=== PATIENT | female | born 2000 | race Caucasian/White ===

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

== ENCOUNTER 2018-06-10 11:13 | Emergency (ER) | payer BC ==
[2018-06-10 13:09] VITALS: BP 131/68
--- NOTE | 2018-06-10 13:24 | ED ---
Throat Pain/Nasal Congestion - HPI Summary HPI Summary: pain in the left ear , worse than the right - History of Current Complaint Chief Complaint: UCEar Time Seen by Provider: 06/10/18 13:17 Hx Obtained From: Patient Onset/Duration: Lasting Days Severity: Severe - Epiglottits Risk Factors Epiglottis Risk Factors: Negative - Allergies/Home Medications Allergies/Adverse Reactions: Allergies Allergy/AdvReac Type Severity Reaction Status Date / Time No Known Allergies Allergy Verified 06/10/18 13:07 PMH/Surg Hx/FS Hx/Imm Hx Previously Healthy: Yes - Surgical History Surgery Procedure, Year, and Place: right knee 2018 Infectious Disease History: No Infectious Disease History: Denies: Hx Clostridium Difficile, Hx Hepatitis, Hx Human Immunodeficiency Virus (HIV), Hx of Known/Suspected MRSA, Hx Shingles, Hx Tuberculosis, Hx Known/ Suspected VRE, Hx Known/Suspected VRSA, History Other Infectious Disease, Traveled Outside the in Last 30 Days - Family History Known Family History: Positive: Cardiac Disease - Social History Alcohol Use: Occasionally Substance Use Type: Reports: None Smoking Status (MU): Never Smoked Tobacco Review of Systems Constitutional: Negative Eyes: Negative ENT: Negative Cardiovascular: Negative Respiratory: Negative Gastrointestinal: Negative Genitourinary: Negative Musculoskeletal: Negative Skin: Negative All Other Systems Reviewed And Are Negative: Yes Physical Exam Triage Information Reviewed: Yes Vital Signs On Initial Exam: Initial Vitals Temp Pulse Resp BP Pulse Ox 36.4 C 73 16 131/68 100 06/10/18 13:05 06/10/18 13:05 06/10/18 13:05 06/10/18 13:05 06/10/18 13:05 Vital Signs Reviewed: Yes Appearance: Positive: Well-Appearing, Pain Distress Skin: Positive: Warm, Dry Head/Face: Positive: Normal Head/Face Inspection Eyes: Positive: Normal ENT: Positive: Other - left sided otitis media Neck: Positive: Supple Respiratory/Lung Sounds: Positive: Clear to Auscultation Cardiovascular: Positive: Normal Diagnostics - Vital Signs Vital Signs Temp Pulse Resp BP Pulse Ox 06/10/18 13:05 36.4 C 73 16 131/68 100 - Laboratory Lab Statement: Any lab studies that have been ordered have been reviewed, and results considered in the medical decision making process. EENT Course/Dx - Diagnoses Provider Diagnoses: Otitis media Discharge - Sign-Out/Discharge Documenting (check all that apply): Patient Departure All imaging exams completed and their final reports reviewed: Yes - Discharge Plan Condition: Good Disposition: HOME Patient Education Materials: Ear Infection (ED) Referrals: No Primary Care Phys,NOPCP [Primary Care Provider] - - Billing Disposition and Condition Condition: GOOD Disposition: Home
== END 2018-06-10 13:43 | disposition home or self-care (01) ==
LOC: UCCORT 11:13
DX: H66.92 Otitis media, unspecified, left ear (principal)
CPT/HCPCS: 99212; G0463

== ENCOUNTER 2018-06-11 20:18 | Emergency (ER) | payer BC ==
[2018-06-11 20:39] VITALS: BP 142/83
[2018-06-11] MEDS ORDERED: Amoxicillin/Clavulanate TAB* 875 MG PO ONE ×2 (20:52)
[2018-06-11] MEDS ORDERED: Ibuprofen TAB* 600 MG PO ONE (20:53)
--- NOTE | 2018-06-11 21:01 | UC ---
Throat Pain/Nasal Mariano HPI - HPI Summary HPI Summary: 18-year-old woman here today with a chief complaint of sinus congestion. Patient's been having left ear pain and sinus congestion and sinus headache for almost a week. She was started on amoxicillin yesterday for the left EAR. The ear pain is decreased. Patient's been using DayQuil and NyQuil without improvement. The headache is frontal at 8 out of 10. She has not tried any ibuprofen. No neck stiffness. - History of Current Complaint Chief Complaint: UCRespiratory Stated Complaint: BURGOS,RUNNY NOSE,EAR COMPLAINT Time Seen by Provider: 06/11/18 20:41 Hx Last Menstrual Period: 05/22/18 Pain Intensity: 8 - Allergies/Home Medications Allergies/Adverse Reactions: Allergies Allergy/AdvReac Type Severity Reaction Status Date / Time No Known Allergies Allergy Verified 06/11/18 20:39 Home Medications: Home Medications D-Methorphan/PE/Acetaminophen [Vicks Dayquil Cold & Flu] 2 cap PO Q24HR PRN 05/21 [History Confirmed 06/11/18] Norgestimate-Ethinyl Estradiol [Sprintec 28 0.25-35 mg-Mcg] 1 tab PO QPM [History Confirmed 06/11/18] PMH/Surg Hx/FS Hx/Imm Hx Previously Healthy: Yes - recurrent sinusitis - Surgical History Surgical History: Yes Surgery Procedure, Year, and Place: right knee 2018 - Family History Known Family History: Positive: Cardiac Disease - Social History Alcohol Use: Occasionally Substance Use Type: None Smoking Status (MU): Never Smoked Tobacco Review of Systems Constitutional: Negative, Fever Eyes: Negative ENT: Sore Throat, Ear Ache, Nasal Discharge, Sinus Congestion, Sinus Pain/ Tenderness Respiratory: Negative Cardiovascular: Negative Gastrointestinal: Negative Motor: Negative Neurovascular: Negative Musculoskeletal: Negative Neurological: Negative Psychological: Negative Is Patient Immunocompromised?: No All Other Systems Reviewed And Are Negative: Yes Physical Exam Triage Information Reviewed: Yes Appearance: No Pain Distress, Well-Nourished, Ill-Appearing - MILD Vital Signs: Initial Vital Signs Temp 99.3 F 06/11/18 20:30 Pulse 86 06/11/18 20:30 Resp 18 06/11/18 20:30 BP 142/83 06/11/18 20:30 Pulse Ox 100 06/11/18 20:30 Vital Signs Reviewed: Yes Eye Exam: Normal Eyes: Positive: Conjunctiva Clear ENT: Positive: Nasal congestion, Nasal drainage, TMs normal Neck exam: Normal Neck: Positive: Supple Respiratory Exam: Normal Respiratory: Positive: Lungs clear, Normal breath sounds, No respiratory distress Cardiovascular Exam: Normal Cardiovascular: Positive: RRR Musculoskeletal Exam: Normal Musculoskeletal: Positive: Strength Intact, ROM Intact Neurological Exam: Normal Neurological: Positive: Alert, Muscle Tone Normal Psychological Exam: Normal Psychological: Positive: Age Appropriate Behavior Skin Exam: Normal Throat Pain/Nasal Course/Dx - Course Course Of Treatment: We will change the amoxicillin to Augmentin. I discussed with the patient starting to use saline nasal spray and also a steroid nasal spray such as Nasacort or Flonase. The nasal sprays role [id number]. Also gave her ibuprofen 600 mg in the clinic. I discussed with her taking ibuprofen and/or acetaminophen as directed as needed for headache. Also hot steamy showers. No signs of meningitis at this time. Get rechecked if not improved. - Differential Dx/Diagnosis Provider Diagnoses: SINUSITIS. HEADACHE Discharge - Sign-Out/Discharge Documenting (check all that apply): Patient Departure All imaging exams completed and their final reports reviewed: No Studies - Discharge Plan Condition: Stable Disposition: HOME Prescriptions: Amoxicillin/Clavulanate TAB* [Augmentin TAB 875*] 875 mg PO BID #18 tab Patient Education Materials: Sinusitis (ED), Acute Headache (ED) Referrals: [facility] [Outside] [facility] [place] [facility] [Outside] Additional Instructions: FOLLOW UP WITH YOUR DOCTOR IF NOT COMPLETELY IMPROVED. GET RECHECKED FOR ANY WORSENING OF YOUR CONDITION OR QUESTIONS OR CONCERNS. - Billing Disposition and Condition Condition: STABLE Disposition: Home
== END 2018-06-11 21:08 | disposition home or self-care (01) ==
LOC: UCCORT 20:18
DX: J32.9 Chronic sinusitis, unspecified (principal); R51 Headache
CPT/HCPCS: 99213; A9270-GY; G0463

== ENCOUNTER 2018-06-24 15:25 | Emergency (ER) | payer BC ==
[2018-06-24 17:11] VITALS: BP 131/83
--- NOTE | 2018-06-24 17:39 | ED ---
Skin Complaint - HPI Summary HPI Summary: 18 yr old with history of eczema presents here with redness and mild swelling left antecubital area. She states she has pustules left arm, left thigh and left side of neck that have all resolved on their own after she pushed pus out of them. She denies IV drug use. Denies fever, chills. She has not felt sick. No other complaints. - History of Current Complaint Chief Complaint: UCSkin Time Seen by Provider: 06/24/18 17:16 Stated Complaint: SKIN COMPLAINT Hx Last Menstrual Period: 06/15/18 Pain Intensity: 0 - Allergy/Home Medications Allergies/Adverse Reactions: Allergies Allergy/AdvReac Type Severity Reaction Status Date / Time No Known Allergies Allergy Verified 06/11/18 20:39 PMH/Surg Hx/FS Hx/Imm Hx - Surgical History Surgery Procedure, Year, and Place: right knee 2018 Infectious Disease History: No Infectious Disease History: Denies: Hx Clostridium Difficile, Hx Hepatitis, Hx Human Immunodeficiency Virus (HIV), Hx of Known/Suspected MRSA, Hx Shingles, Hx Tuberculosis, Hx Known/ Suspected VRE, Hx Known/Suspected VRSA, History Other Infectious Disease, Traveled Outside the [place] in Last 30 Days - Family History Known Family History: Positive: Cardiac Disease - Social History Alcohol Use: Occasionally Substance Use Type: Reports: None Smoking Status (MU): Never Smoked Tobacco Review of Systems Constitutional: Negative Positive: Other - skin in fection All Other Systems Reviewed And Are Negative: Yes Physical Exam Triage Information Reviewed: Yes Vital Signs On Initial Exam: Initial Vitals Temp Pulse Resp BP Pulse Ox 98.4 F 67 15 131/83 100 06/24/18 17:07 06/24/18 17:07 06/24/18 17:07 06/24/18 17:07 06/24/18 17:07 Vital Signs Reviewed: Yes Appearance: Positive: Well-Appearing, No Pain Distress Skin: Positive: Other - skin over antecubital fossa with some mild eczematous chagnes. The right side with 2 cm area of redness, no fluctuance.Minimal induration. Head/Face: Positive: Normal Head/Face Inspection Eyes: Positive: EOMI Neck: Positive: Supple, Nontender Respiratory/Lung Sounds: Positive: Clear to Auscultation, Breath Sounds Present Cardiovascular: Positive: RRR. Negative: Murmur Abdomen Description: Positive: Nontender Musculoskeletal: Positive: Strength/ROM Intact Neurological: Positive: Sensory/Motor Intact, Alert, Oriented to Person Place, Time, CN Intact II-III Psychiatric: Positive: Normal - [place] Coma Scale Best Eye Response: 4 - Spontaneous Best Motor Response: 6 - Obeys Commands Best Verbal Response: 5 - Oriented Coma Scale Total: 15 Diagnostics - Vital Signs Vital Signs Temp Pulse Resp BP Pulse Ox 06/24/18 17:07 98.4 F 67 15 131/83 100 - Laboratory Lab Statement: Any lab studies that have been ordered have been reviewed, and results considered in the medical decision making process. Course/Dx - Course Course Of Treatment: 18 yr old with cellulitis right antecubital fossa. Rx with bactrim DS. - Diagnoses Provider Diagnoses: Cellulitis Discharge - Sign-Out/Discharge Documenting (check all that apply): Patient Departure All imaging exams completed and their final reports reviewed: No Studies - Discharge Plan Condition: Good Disposition: HOME Prescriptions: Sulfamethox/Trimethoprim DS* [Bactrim DS 800/160 TAB*] 1 tab PO BID #20 tab Patient Education Materials: Cellulitis (ED) Referrals: No Primary Care Phys,NOPCP [Primary Care Provider] - [facility] [place] [facility] [place]] - Billing Disposition and Condition Condition: GOOD Disposition: Home
== END 2018-06-24 17:43 | disposition home or self-care (01) ==
LOC: UCCORT 15:25
DX: L03.114 Cellulitis of left upper limb (principal)
CPT/HCPCS: 99212; G0463

== ENCOUNTER 2018-10-01 08:28 | Emergency (ER) | payer BC ==
[2018-10-01 08:55] VITALS: BP 130/62
--- NOTE | 2018-10-01 09:27 | UC ---
Skin Complaint HPI - HPI Summary HPI Summary: boil left upper back x 3 days the area is painful, swollen, ret, had yellow / green drainage yesterday no fever, had upset stomach and vomiting this morning - History of Current Complaint Chief Complaint: UCSkin Time Seen by Provider: 10/01/18 09:17 Stated Complaint: VOMITTING,BACK SKIN COMPLAINT,POSS CYST Hx Obtained From: Patient Hx Last Menstrual Period: 09/11/18 Onset/Duration: Gradual Onset, Lasting Days - 3, Still Present Timing: Constant Onset Severity: Moderate Current Severity: Moderate Pain Intensity: 7 Location: Discrete - left upper back Character: Swelling, Redness, Raised, Painful Aggravating Factor(s): Touch Alleviating Factor(s): Nothing Associated Signs & Symptoms: Positive: Nausea, Vomiting, Tenderness. Negative: Fever, Chills, Cough, Red Streaks - Allergy/Home Medications Allergies/Adverse Reactions: Allergies Allergy/AdvReac Type Severity Reaction Status Date / Time cortisone Allergy Swelling Verified 10/01/18 08:48 PMH/Surg Hx/FS Hx/Imm Hx Previously Healthy: Yes - Surgical History Surgical History: Yes Surgery Procedure, Year, and Place: right knee 2018 - Family History Known Family History: Positive: Cardiac Disease - Social History Alcohol Use: Occasionally Substance Use Type: None Smoking Status (MU): Never Smoked Tobacco Review of Systems All Other Systems Reviewed And Are Negative: Yes Constitutional: Positive: Negative Eyes: Positive: Negative ENT: Positive: Negative Respiratory: Positive: Negative Gastrointestinal: Positive: Abdominal Pain, Vomiting, Nausea Genitourinary: Positive: Negative Is Patient Immunocompromised?: No Physical Exam Triage Information Reviewed: Yes Appearance: Well-Appearing, No Pain Distress, Well-Nourished Vital Signs: Initial Vital Signs Temp 98.1 F 10/01/18 08:49 Pulse 76 10/01/18 08:49 Resp 18 10/01/18 08:49 BP 130/62 10/01/18 08:49 Pulse Ox 100 10/01/18 08:49 Vital Signs Reviewed: Yes Eye Exam: Normal Eyes: Positive: Conjunctiva Clear ENT: Positive: Normal ENT inspection, Hearing grossly normal, Pharynx normal Neck: Positive: Supple, Nontender, No Lymphadenopathy Respiratory: Positive: Chest non-tender, Lungs clear, Normal breath sounds Cardiovascular: Positive: RRR, No Murmur, Pulses Normal Abdomen Description: Positive: Nontender, Soft. Negative: CVA Tenderness (R), CVA Tenderness (L), Distended, Guarding Bowel Sounds: Positive: Present Skin: Positive: Other - small abscess left upper back , + erythema, tender to touch , Course/Dx - Diagnoses Provider Diagnosis: Abscess of back, Gastritis Discharge - Sign-Out/Discharge Documenting (check all that apply): Patient Departure All imaging exams completed and their final reports reviewed: No Studies - Discharge Plan Condition: Stable Disposition: HOME Prescriptions: Sulfamethox/Trimethoprim DS* [Bactrim DS 800/160 TAB*] 1 tab PO BID #14 tab Patient Education Materials: Abscess (ED) Referrals: No Primary Care Phys,NOPCP [Primary Care Provider] - If Needed - Billing Disposition and Condition Condition: STABLE Disposition: Home
== END 2018-10-01 09:30 | disposition home or self-care (01) ==
LOC: UCCORT 08:28
DX: L02.212 Cutaneous abscess of back [any part, except buttock and flank] (principal); K29.70 Gastritis, unspecified, without bleeding; Z88.8 Allergy status to other drugs, medicaments and biological substances
CPT/HCPCS: 99212; G0463

== ENCOUNTER 2018-12-12 11:44 | Emergency (ER) | payer BC ==
[2018-12-12 11:58] VITALS: BP 143/74
--- NOTE | 2018-12-12 12:29 | UC ---
Throat Pain/Nasal Mariano HPI - HPI Summary HPI Summary: Patient presents to urgent care reporting sore throat progressive the last 24 hours. Patient states she felt like her tongue was swollen. Patient with painful swallowing but no difficulty swallowing. No difficulty with secretions. Patient did not take anything for pain today. Patient is not having to eat or drink today. Patient denies any nausea/vomiting. No fevers or chills. No ear pain or sinus pain. Patient was exposed to strep approximately one week ago. Patient states she is not . Patient's medications reviewed this visit. - History of Current Complaint Chief Complaint: UCRespiratory Stated Complaint: TOUNGE SWELLING Time Seen by Provider: 12/12/18 12:21 Hx Obtained From: Patient Hx Last Menstrual Period: last week Onset/Duration: Gradual Onset Severity: Moderate Pain Intensity: 7 Pain Scale Used: 0-10 Numeric - Allergies/Home Medications Allergies/Adverse Reactions: Allergies Allergy/AdvReac Type Severity Reaction Status Date / Time cortisone Allergy Swelling Verified 12/12/18 11:50 local Home Medications: Home Medications diphenhydrAMINE HCl [Benadryl Allergy] 25 mg PO ONCE PRN 12/12/18 [History Confirmed 12/12/18] PMH/Surg Hx/FS Hx/Imm Hx Previously Healthy: Yes - Surgical History Surgical History: Yes Surgery Procedure, Year, and Place: right knee 2018 - Family History Known Family History: Positive: Cardiac Disease - Social History Occupation: Student Lives: Dormitory/Roommates - off campus Alcohol Use: Occasionally Substance Use Type: None Smoking Status (MU): Never Smoked Tobacco Review of Systems All Other Systems Reviewed And Are Negative: Yes Constitutional: Positive: Negative Skin: Positive: Negative ENT: Positive: Sore Throat. Negative: Ear Ache, Nasal Discharge, Sinus Congestion, Sinus Pain/Tenderness Respiratory: Positive: Negative Cardiovascular: Positive: Negative Gastrointestinal: Positive: Negative Physical Exam - Summary Physical Exam Summary: Vital Signs Reviewed: Yes A+Ox3, no distress, speaking full, easy sentences,no difficulty with secretions , no muffled voice, laughing, interacting Eyes: Conjunctiva Clear, STEPH. EOM intact and full ENT: Hearing grossly normal TM x 2 clear, turbinates wnl, moist, uvula midline , symmetric, diffuse erythema, no exudate normal moblity and lie of tongue Neck: Positive: Supple, + submandicular LA L>R Respiratory: Positive: No respiratory distress, No accessory muscle use + CTA throughout no w/r Cardiovascular: RRR nl s1, s2 no m/r CBT <2 sec abd soft + BS nt/nd no guarding, no distension Musculoskeletal Exam: HONG x 4 without difficulty Strength Intact, ROM Intact Neurological: Positive: Alert, + sensation throughout Psychological: Positive: Normal Response To Family Skin: Positive: no rash, no ecchymosis Triage Information Reviewed: Yes Vital Signs: Initial Vital Signs Temp 99.9 F 12/12/18 11:52 Pulse 84 12/12/18 11:52 Resp 20 12/12/18 11:52 BP 143/74 12/12/18 11:52 Pulse Ox 100 12/12/18 11:52 Throat Pain/Nasal Course/Dx - Course Course Of Treatment: Patient presents to urgent care with 24 hours of progressive sore throat. Patient was exposed to strep week ago. Patient has not taken anything for pain. Patient vital signs are stable. Patient with out any difficulty with secretions or airway time of presentation. Patient strep is positive. Patient does have diffuse erythema of the oropharynx as well as submandibular lymphadenopathy. No concern for abscess on today's visit. We'll start amoxicillin.'s gargle and spit warm salt water. Fluids. Strict return precautions. Patient does have a history of allergies allergic reaction cortisones will not use any steroids at this visit. Patient declined offer to speak to parents. Patient comfortable in agreement with plan. Patient's friend present with her. Patient advised to call 911 immediately if she feels like she is having difficulty handling her secretions or breathing. Patient states understanding mild increase BP- recommend f/u with PCP - Differential Dx/Diagnosis Provider Diagnosis: Strep pharyngitis Discharge - Sign-Out/Discharge Documenting (check all that apply): Patient Departure All imaging exams completed and their final reports reviewed: No Studies - Discharge Plan Condition: Stable Disposition: HOME Prescriptions: Amoxicillin PO (*) [Amoxicillin 500 MG CAP*] 500 mg PO Q12H #20 cap Patient Education Materials: Strep Throat (ED) Referrals: [facility] [Outside] No Primary Care Phys,NOPCP [Primary Care Provider] - Additional Instructions: - Okay to alternate ibuprofen (Advil, Motrin) 600mg and Tylenol 1000mg every 3 hours for pain. Take with food. Do NOT take for more than 4-5 days - Okay to gargle and spit warm salt water every 4 hours as needed for pain - Stay well hydrated - frequent sips of cold fluids will be soothing to your throat (popsicles, jello, ice cream, ice water). Avoid excess caffeine until your symptoms have resolved. -Throat infections are spread by oral secretions - do not share eating or drinking utensils until you symptoms are resolved. Clean items that may get your secretions such as cell phones, ipads, computer mouse, television remotes. Once you have been on antibiotics for 2 days, change your toothbrush and your pillowcase. -Humidify the air in the room where you sleep - boil water, run a hot steam shower, vaporizer, cups of water by heat register - Contact your doctor to arrange a follow-up appointment as needed - Billing Disposition and Condition Condition: STABLE Disposition: Home
== END 2018-12-12 12:55 | disposition home or self-care (01) ==
LOC: UCCORT 11:44
DX: J02.0 Streptococcal pharyngitis (principal); Z88.8 Allergy status to other drugs, medicaments and biological substances
CPT/HCPCS: 87651; 99211; G0463

== ENCOUNTER 2019-05-28 12:24 | Emergency (ER) | payer BC ==
[2019-05-28 13:55] VITALS: BP 135/95
--- NOTE | 2019-05-28 14:24 | UC ---
Throat Pain/Nasal Mariano HPI - HPI Summary HPI Summary: 19-year-old female presents with 2 day history of sore throat. Associated with some mild nasal congestion and occasional productive cough. Has been taking ibuprofen with some relief in symptoms. Denies fever, chills, ear pain, dysphagia, chest pain, shortness of breath, abdominal pain, nausea, or vomiting. - History of Current Complaint Chief Complaint: UCGeneralIllness Stated Complaint: ST Time Seen by Provider: 05/28/19 13:52 Hx Obtained From: Patient Hx Last Menstrual Period: last week Pain Intensity: 7 - Allergies/Home Medications Allergies/Adverse Reactions: Allergies Allergy/AdvReac Type Severity Reaction Status Date / Time cortisone AdvReac Swelling Verified 05/28/19 13:55 local Home Medications: Home Medications Ibuprofen TAB* [Advil TAB*] 400 mg PO Q6H PRN 05/28/19 [History Confirmed ] PMH/Surg Hx/FS Hx/Imm Hx Previously Healthy: Yes - Denies significant PMH - Surgical History Surgical History: Yes Surgery Procedure, Year, and Place: right knee 2018 - Family History Known Family History: Positive: Cardiac Disease - Social History Occupation: Student Lives: Dormitory/Roommates Alcohol Use: Weekly Substance Use Type: None Smoking Status (MU): Never Smoked Tobacco Review of Systems All Other Systems Reviewed And Are Negative: Yes Constitutional: Negative: Fever, Chills Skin: Negative: Rash Eyes: Negative: Drainage, Eye Redness ENT: Positive: Sore Throat, Sinus Congestion. Negative: Ear Ache, Nasal Discharge, Sinus Pain/Tenderness Respiratory: Positive: Cough. Negative: Shortness Of Breath Cardiovascular: Positive: Negative Gastrointestinal: Negative: Abdominal Pain, Vomiting, Diarrhea, Nausea Genitourinary: Positive: Negative Musculoskeletal: Positive: Negative Neurological: Positive: Negative Is Patient Immunocompromised?: No Physical Exam - Summary Physical Exam Summary: GENERAL APPEARANCE: Well developed, well nourished, alert and cooperative, and appears to be in no acute distress. EYES: Conjunctiva clear. No drainage. EARS: External auditory canals and tympanic membranes clear, hearing grossly intact. NOSE: Mild nasal congestion. No nasal discharge. THROAT: Pharyngeal erythema. 3+ tonsils without exudate. Uvula midline. NECK: Neck supple, non-tender. Anterior cervical lymphadenopathy. CARDIAC: Normal S1 and S2. No S3, S4 or murmurs. Rhythm is regular. There is no peripheral edema, cyanosis or pallor. Extremities are warm and well perfused. Capillary refill is less than 2 seconds. Peripheral pulses intact. LUNGS: Clear to auscultation without rales, rhonchi, wheezing or diminished breath sounds. Cough not observed. ABDOMEN: Positive bowel sounds. Soft, nondistended, nontender. No guarding or rebound. No masses or hepatosplenomegally. MUSKULOSKELETAL: ROM intact to all extremities. No joint erythema or tenderness. Normal muscular development. Normal gait. SKIN: Skin normal color, texture and turgor with no lesions or eruptions. Triage Information Reviewed: Yes Vital Signs: Initial Vital Signs Temp 98.6 F 05/28/19 13:52 Pulse 105 05/28/19 13:52 Resp 15 05/28/19 13:52 BP 135/95 05/28/19 13:52 Pulse Ox 100 05/28/19 13:52 Vital Signs Reviewed: Yes Throat Pain/Nasal Course/Dx - Course Course Of Treatment: 19-year-old female presents with 2 day history of sore throat. Associated with some mild nasal congestion and occasional productive cough. Has been taking ibuprofen with some relief in symptoms. Denies fever, chills, ear pain, dysphagia, chest pain, shortness of breath, abdominal pain, nausea, or vomiting. Afebrile. Mildly tachycardic wasstable. Patient had mild nasal congestion, pharyngeal erythema 3+ tonsils without exudate, anterior cervical lymphadenopathy, clear bilateral breath sounds, and otherwise unremarkable exam. Rapid strep test was positive. We will treat for a strep pharyngitis with amoxicillin 500 mg twice a day 10 days as well as symptomatic treatment. She is to return here or follow up at the [facility] in 3 days if symptoms are not improving. Anticipatory guidance and warning symptoms were reviewed with the patient. Verbalizes understanding and agrees with plan of care. - Differential Dx/Diagnosis Differential Diagnosis/HQI/PQRI: Mononucleosis, Peritonsillar Abscess, Pharyngitis, Tonsillitis, URI Provider Diagnosis: Strep pharyngitis Discharge ED - Sign-Out/Discharge Documenting (check all that apply): Patient Departure All imaging exams completed and their final reports reviewed: No Studies - Discharge Plan Condition: Stable Disposition: HOME Prescriptions: Amoxicillin PO (*) [Amoxicillin 500 MG CAP*] 500 mg PO BID #20 cap Patient Education Materials: Strep Throat (ED) Referrals: No Primary Care Phys,NOPCP [Primary Care Provider] - Additional Instructions: Your rapid strep test in the clinic today was positive. We will start you on an antibiotic to treat the infection. Start amoxicillin 500 mg twice a day for 10 days. Take with food to avoid upset stomach. Be sure to complete the entire course even if feeling better. After you have been on antibiotics for 3 days, throw out your toothbrush and replace with a new one to prevent reinfection. Drink plenty of fluids to avoid dehydration especially if you are running any fever. Use salt water gargles several times a day. Take over the counter acetaminophen (Tylenol) or ibuprofen (Advil, Motrin) according to directions as needed for pain or fever. You may also use Chloraseptic spray or Cepacol lonzenges according to directions which contain a numbing medication and can provide some temporary relief from your sore throat. Return here or follow up with the [facility] in 3-5 days if symptoms do not improve. Seek immediate medical attention in the emergency room if you have fever greater than 100.5 F despite taking acetaminophen or ibuprofen, are unable to swallow or develop drooling, are unable to open your mouth fully, are unable to eat or drink, have pain that is not relieved with over the counter pain medication, have any difficulty breathing, or any worsening of symptoms. - Billing Disposition and Condition Condition: STABLE Disposition: Home
== END 2019-05-28 14:31 | disposition home or self-care (01) ==
LOC: UCCORT 12:24
DX: J02.0 Streptococcal pharyngitis (principal); Z88.8 Allergy status to other drugs, medicaments and biological substances
CPT/HCPCS: 87651; 99212; G0463

== ENCOUNTER 2019-07-01 18:58 | Emergency (ER) | payer BC ==
[2019-07-01 19:48] VITALS: BP 150/65
--- NOTE | 2019-07-01 20:32 | UC ---
FLU HPI - HPI Summary HPI Summary: Patient is a 19yo female presenting with friend for runny nose, fever, chills, body aches, nausea, and dry cough x1 day. Patient states symptoms have gradually worsened. Notes bilateral ear pressure. Denies sinus tenderness and sore throat. Denies SOB and wheezing. Denies v/d and abdominal pain. Denies decreased appetite and fluid intake. - History of Current Complaint Chief Complaint: UCGeneralIllness Stated Complaint: FEVER, FATIGUE, RUNNY NOSE Hx Obtained From: Patient Hx Last Menstrual Period: 06/24/19 Onset/Duration: Sudden Onset Severity Currently: Mild Severity Initially: Moderate Pain Intensity: 6 Pain Scale Used: 0-10 Numeric - Allergy/Home Medications Allergies/Adverse Reactions: Allergies Allergy/AdvReac Type Severity Reaction Status Date / Time cortisone AdvReac Swelling Verified 07/01/19 19:44 local Home Medications: Home Medications D-Methorphan/PE/Acetaminophen [Vicks Dayquil Liquicaps] 2 cap PO DAILY PRN 07/01 [History Confirmed 07/01/19] PMH/Surg Hx/FS Hx/Imm Hx Previously Healthy: Yes - Surgical History Surgical History: Yes Surgery Procedure, Year, and Place: right knee 2018 - Family History Known Family History: Positive: Cardiac Disease, Non-Contributory - Social History Alcohol Use: Weekly Substance Use Type: None Smoking Status (MU): Never Smoked Tobacco Review of Systems All Other Systems Reviewed And Are Negative: Yes Constitutional: Positive: Fever, Chills, Fatigue ENT: Positive: Ear Ache, Nasal Discharge, Sinus Congestion. Negative: Sore Throat, Sinus Pain/Tenderness Respiratory: Positive: Cough. Negative: Shortness Of Breath Cardiovascular: Positive: Negative. Negative: Palpitations, Chest Pain Gastrointestinal: Positive: Nausea. Negative: Abdominal Pain, Vomiting, Diarrhea Musculoskeletal: Positive: Negative Neurological: Positive: Negative Physical Exam Triage Information Reviewed: Yes Appearance: No Pain Distress, Well-Nourished, Ill-Appearing Vital Signs: Initial Vital Signs Temp 99.5 F 07/01/19 19:45 Pulse 84 07/01/19 19:45 Resp 20 07/01/19 19:45 BP 150/65 07/01/19 19:45 Pulse Ox 100 07/01/19 19:45 Lab Results 07/01/19 Range/Units 20:25 Influenza A (Rapid) Negative (Negative) Influenza B (Rapid) Negative (Negative) Vital Signs Reviewed: Yes ENT: Positive: Hearing grossly normal, Pharyngeal erythema, Nasal congestion, Nasal drainage, TM red - b/l, Uvula midline. Negative: Tonsillar swelling, Tonsillar exudate Neck exam: Normal Neck: Positive: Supple, Nontender, No Lymphadenopathy Respiratory Exam: Normal Respiratory: Positive: Lungs clear, Normal breath sounds, No respiratory distress. Negative: Crackles, Rhonchi, Stridor, Wheezing Cardiovascular Exam: Normal Cardiovascular: Positive: RRR. Negative: Tachycardia, Bradycardia Neurological: Positive: Alert Psychological: Positive: Age Appropriate Behavior Flu Course/Dx - Course Course Of Treatment: Discussed with patient negative rapid flu test and likely viral etiology of symptoms. Instructed to continue with symptomatic treatment. Instructed to follow up with [facility] or [facility] if symptoms persist or to go to ED if symptoms worsen. Patient voiced understanding and agreed with the treatment plan. - Differential Dx/Diagnosis Provider Diagnosis: Flu-like symptoms Discharge ED - Sign-Out/Discharge Documenting (check all that apply): Patient Departure All imaging exams completed and their final reports reviewed: No Studies - Discharge Plan Condition: Stable Disposition: HOME Patient Education Materials: Viral Syndrome (ED) Forms: *School Release Referrals: [facility] [Outside] - If Needed Additional Instructions: You tested negative for the flu today. Your symptoms are likely caused by a virus and should resolve on their own. You may take over the counter cough and cold medications to help alleviate your cold symptoms. You may take ibuprofen and tylenol as directed for pain and fever relief. IT is important that you get plenty of rest and fluids. Follow up with your [facility] or the [facility] list below if your symptoms worsen or do not resolve within 7 days. - Billing Disposition and Condition Condition: STABLE Disposition: Home
[2019-07-01 20:37] LABS: Influenza A Molecular NEGATIVE (Negative); Influenza B Molecular NEGATIVE (Negative)
[2019-07-01] MEDS ORDERED: Ibuprofen TAB* 200 MG PO ONE (20:50)
== END 2019-07-01 20:56 | disposition home or self-care (01) ==
LOC: UCCORT 18:58
DX: R05 Cough (principal); H92.09 Otalgia, unspecified ear; R09.89 Other specified symptoms and signs involving the circulatory and respiratory systems; R50.9 Fever, unspecified; R53.83 Other fatigue; R11.0 Nausea; R52 Pain, unspecified; Z88.8 Allergy status to other drugs, medicaments and biological substances
CPT/HCPCS: 99212; A9270-GY; G0463

== ENCOUNTER 2019-07-11 13:09 | Emergency (ER) | payer BC ==
[2019-07-11 13:41] VITALS: BP 129/54
--- NOTE | 2019-07-11 14:29 | UC ---
Knee Pain HPI - HPI Summary HPI Summary: 19 yo female with left knee pain Injured left knee 4 days ago fell and landed on patella - History of Current Complaint Chief Complaint: UCLowerExtremity Stated Complaint: L KNEE INJ Time Seen by Provider: 07/11/19 14:21 Hx Obtained From: Patient Hx Last Menstrual Period: 06/23/19 Onset/Duration: Sudden Onset, Lasting Days Severity Initially: Moderate Severity Currently: Moderate Pain Intensity: 7 Pain Scale Used: 0-10 Numeric Character: Aching, Throbbing Aggravating Factor(s): Movement, Weight Bearing Alleviating Factor(s): Rest Associated Signs And Symptoms: Positive: Swelling Able to Bear Weight: Yes Legs: 1 - pain/swelling - Allergies/Home Medications Allergies/Adverse Reactions: Allergies Allergy/AdvReac Type Severity Reaction Status Date / Time cortisone AdvReac Unknown Swelling Verified 07/11/19 13:34 local Home Medications: Home Medications Ibuprofen TAB* [Advil TAB*] 400 mg PO Q6H PRN 07/11/19 [History Confirmed ] PMH/Surg Hx/FS Hx/Imm Hx Previously Healthy: Yes - Surgical History Surgical History: Yes Surgery Procedure, Year, and Place: right knee 2018 - Family History Known Family History: Positive: Cardiac Disease, Non-Contributory - Social History Alcohol Use: Weekly Substance Use Type: None Smoking Status (MU): Never Smoked Tobacco Review of Systems All Other Systems Reviewed And Are Negative: Yes Constitutional: Positive: Negative Skin: Positive: Negative Eyes: Positive: Negative ENT: Positive: Negative Respiratory: Positive: Negative Cardiovascular: Positive: Negative Gastrointestinal: Positive: Negative Genitourinary: Positive: Negative Motor: Positive: Negative Neurovascular: Positive: Negative Musculoskeletal: Positive: Arthralgia - left knee Neurological: Positive: Negative Psychological: Positive: Negative Physical Exam Triage Information Reviewed: Yes Appearance: Well-Appearing, No Pain Distress, Well-Nourished Vital Signs: Initial Vital Signs Temp 98.7 F 07/11/19 13:35 Pulse 73 07/11/19 13:35 Resp 16 07/11/19 13:35 BP 129/54 07/11/19 13:35 Pulse Ox 100 07/11/19 13:35 Vital Signs Reviewed: Yes Eyes: Positive: Conjunctiva Clear ENT: Positive: Hearing grossly normal. Negative: Nasal congestion, Nasal drainage, Trismus, Muffled voice, Hoarse voice Neck: Positive: Supple, Nontender Respiratory: Positive: Lungs clear, Normal breath sounds, No respiratory distress, No accessory muscle use Cardiovascular: Positive: RRR, No Murmur Musculoskeletal: Positive: Other: - see image, slight edema/no effusion/ tender infra patellar Neurological: Positive: Alert Psychological Exam: Normal Skin Exam: Normal Diagnostics - Radiology No standard instances Radiology Interpretation Completed By: Radiologist Summary of Radiographic Findings: IMPRESSION: 1. NO EVIDENCE FOR FRACTURE. 2. 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 Knee Pain Course/Dx - Differential Dx/Diagnosis Provider Diagnosis: Left knee injury Discharge ED - Sign-Out/Discharge Documenting (check all that apply): Patient Departure All imaging exams completed and their final reports reviewed: Yes - Discharge Plan Condition: Stable Disposition: HOME Patient Education Materials: Knee Pain (ED), Knee Immobilizer (ED) Referrals: Pavel Diaz MD [Medical Doctor] - 4 Days Additional Instructions: IMPRESSION: 1. NO EVIDENCE FOR FRACTURE. 2. 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 An osteochondroma is a benign (non cancerous) overgrowth of bone and cartilage rest ice elevation knee immobilizer ibuprofen - Billing Disposition and Condition Condition: STABLE Disposition: Home
== END 2019-07-11 15:33 | disposition home or self-care (01) ==
LOC: UCCORT 13:09
DX: S89.92XA Unspecified injury of left lower leg, initial encounter (principal); W19.XXXA Unspecified fall, initial encounter; Y92.9 Unspecified place or not applicable; Z88.8 Allergy status to other drugs, medicaments and biological substances
CPT/HCPCS: 99213; G0463

== ENCOUNTER 2019-07-21 21:08 | Emergency (ER) | payer BC ==
--- OUTSIDE RECORDS SUMMARY | 2019-07-21 21:13 | XMS REPORT | Continuity of Care Document ---
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 Tablets Immunizations Description No Information Available Vital Signs Date Vital Result Comment 07/15/2019 11:44am Heart Rate 67 /min BP Systolic Sitting 146 mmHg BP Diastolic Sitting 92 mmHg Respiratory Rate 20 /min Pain Level 6 O2 % BldC Oximetry 99 % Results Description No Information Available Procedures Description No Information Available Medical Devices Description No Information Available Encounters Description No Information Available Assessments Date Code Description Provider 07/15/2019 S80.02xA Contusion of left knee, initial encounter Pavel Diaz MD Plan of Treatment Future Appointment(s):08/05/2019 11:30 am - Pavel Diaz MD at [facility] [place]/12/2019 - Pavel Diaz [id number] Contusion of left knee, initial encounterFollow up:Follow up: 3 weeks Functional Status Description No Information Available Mental Status Description No Information Available Referrals Description No Information Available
[2019-07-21 21:21] VITALS: BP 139/75
--- NOTE | 2019-07-21 21:38 | UC ---
General HPI - HPI Summary HPI Summary: 19-year-old female presents with complaints of cold sores. States she had a single cold sore. Approximately 3 days ago and has since developed 2 more cold sores. She has been using Abreva with little improvement in symptoms. States she has frequent outbreaks of cold sores. States she has seen her photos scheduled for tomorrow and is requesting oral antiviral treatment to try to improve the symptoms. - History of Current Complaint Chief Complaint: UCGeneralIllness Stated Complaint: ORAL COMPLAINT Hx Last Menstrual Period: 07/17/19 Pain Intensity: 6 - Allergy/Home Medications Allergies/Adverse Reactions: Allergies Allergy/AdvReac Type Severity Reaction Status Date / Time cortisone AdvReac Unknown Swelling Verified 07/21/19 21:16 local PMH/Surg Hx/FS Hx/Imm Hx Previously Healthy: Yes - Denies significant PMH - Surgical History Surgical History: Yes Surgery Procedure, Year, and Place: right knee 2018 - Family History Known Family History: Positive: Cardiac Disease, Non-Contributory - Social History Occupation: Student Lives: Dormitory/Roommates Alcohol Use: Occasionally Substance Use Type: None Smoking Status (MU): Never Smoked Tobacco Review of Systems All Other Systems Reviewed And Are Negative: Yes Constitutional: Negative: Fever, Chills Skin: Positive: Other - See HPI Respiratory: Positive: Negative Cardiovascular: Positive: Negative Gastrointestinal: Positive: Negative Genitourinary: Positive: Negative Musculoskeletal: Positive: Negative Neurological: Positive: Negative Psychological: Positive: Negative Is Patient Immunocompromised?: No Physical Exam - Summary Physical Exam Summary: GENERAL APPEARANCE: Well developed, well nourished, alert and cooperative, and appears to be in no acute distress. EYES: Conjunctiva clear. No drainage. EARS: External auditory canals and tympanic membranes clear, hearing grossly intact. NOSE: No nasal discharge. THROAT: Pharynx normal. No tonsilar inflammation, swelling, exudate, or lesions. Uvula midline. 2 ulcerations noted along the vermilion border of the left lower lip and 1 to the vermilion border of the left upper lip. NECK: Neck supple, non-tender without lymphadenopathy. CARDIAC: Normal S1 and S2. No S3, S4 or murmurs. Rhythm is regular. There is no peripheral edema, cyanosis or pallor. Extremities are warm and well perfused. Capillary refill is less than 2 seconds. Peripheral pulses intact. LUNGS: Clear to auscultation without rales, rhonchi, wheezing or diminished breath sounds. ABDOMEN: Positive bowel sounds. Soft, nondistended, nontender. No guarding or rebound. No masses or hepatosplenomegally. MUSKULOSKELETAL: ROM intact to all extremities. No joint erythema or tenderness. Normal muscular development. Normal gait. SKIN: Skin normal color, texture and turgor with no lesions or eruptions. Triage Information Reviewed: Yes Vital Signs: Initial Vital Signs Temp 98.8 F 07/21/19 21:17 Pulse 75 07/21/19 21:17 Resp 20 07/21/19 21:17 BP 139/75 07/21/19 21:17 Pulse Ox 100 07/21/19 21:17 Vital Signs Reviewed: Yes Course/Dx - Course Course Of Treatment: 19-year-old female presents with complaints of cold sores. States she had a single cold sore. Approximately 3 days ago and has since developed 2 more cold sores. She has been using Abreva with little improvement in symptoms. States she has frequent outbreaks of cold sores. States she has seen her photos scheduled for tomorrow and is requesting oral antiviral treatment to try to improve the symptoms. Afebrile. Vital signs stable. Patient had 2 ulcerations noted along the vermilion border of the left lower lip and 1 to the vermilion border of the left upper lip and an otherwise unremarkable exam. Will treat her for an oral herpes simplex outbreak with acyclovir 400 mg 3 times a day 7 days. She was given the first dose in the clinic. She is to return or follow-up with the [facility] [place] in 7 days if symptoms are not improving. Anticipatory guidance and warning symptoms reviewed of the patient. Verbalized understanding and agrees with plan of care. - Diagnoses Provider Diagnosis: Cold sore Discharge ED - Sign-Out/Discharge Documenting (check all that apply): Patient Departure All imaging exams completed and their final reports reviewed: No Studies - Discharge Plan Condition: Stable Disposition: HOME Prescriptions: Acyclovir [Zovirax] 400 mg PO TID #21 tab Patient Education Materials: Oral Herpes Simplex Virus Infections (ED) Referrals: No Primary Care Phys,NOPCP [Primary Care Provider] - Additional Instructions: Your lesions are consistent with a cold sore which is caused by the herpes simplex virus. We will start to on an antiviral medication. Be aware that this is not a cure for the infection but merely meant to lessen the severity and shorten the duration of symptoms. Take acyclovir 400 mg 3 times a day for 7 days. You were given the first dose of this in the clinic. Do not touch or pick at the lesions and then touch other body parts as you could potentially spread this other areas. You need to avoid close contact such as kissing while you have open sores as this virus is highly contagious and he could potentially infect others. You should also avoid sharing utensils, drinks, lip balm, makeup, washcloths and towels with others. Avoid foods that are salty, spicy, or acidic as this can irritate the lesions. Return here or follow up at the [facility] [place] in 7 days if symptoms are not improving. Seek immediate medical attention if you have any worsening of symptoms. - Billing Disposition and Condition Condition: STABLE Disposition: Home - Attestation Statements Provider Attestation: This patient was not seen by me. I was available for consult. Chart reviewed. LIZETH
[2019-07-21] MEDS ORDERED: Acyclovir* 200 MG CAP PO ONE (21:39)
== END 2019-07-21 21:56 | disposition home or self-care (01) ==
LOC: UCCORT 21:08
DX: K13.0 Diseases of lips (principal); Z88.8 Allergy status to other drugs, medicaments and biological substances
CPT/HCPCS: 99212; A9270-GY; G0463